=== PATIENT | male | born 1965 | race Caucasian/White ===

== ENCOUNTER → 2016-08-17 19:47 | Outpatient (CLI) | payer MEDICAID, BC | END | disposition home or self-care (01) | LOC: D.SLEEP 19:47 | DX: G47.33 Obstructive sleep apnea (adult) (pediatric) (principal) ==

== ENCOUNTER 2016-08-28 16:39 | Emergency (ER) | payer MEDICAID, BC ==
[2016-08-28 18:36] LABS: BASOPHILS 0.5 % (0.0-2.0); EOSINOPHILS 2.3 % (0-7); HEMATOCRIT 42.7 % (42.0-54.0); HEMOGLOBIN 15.2 g/dL (13.5-17.5); IMMATURE GRANULOCYTES 0.1 % (0-5); LYMPHOCYTES 26.9 % (15-50); MCH 30.7 pg (26.0-34.0); MCHC 35.6 g/dL (31.0-37.0); MCV 86.3 fL (80.0-100.0); MEAN PLATELET VOLUME 9.5 fL (7.4-10.4); NEUTROPHILS 62.2 % (40-80); PLATELET COUNT 182 10x3/uL (130-400); RBC 4.95 10x6/uL (4.20-6.10); RDW 12.6 % (11.5-14.5); WBC 7.5 10x3/uL (4.8-10.8)
[2016-08-28 19:04] LABS: ALBUMIN 4.2 g/dL (3.4-5.0); ALKALINE PHOSPHATASE 68 U/L (46-116); ALT (SGPT) 44 U/L (10-68); CALC OSMOLALITY 286 mosm/kg (275-300); CALCIUM 9.3 mg/dL (8.5-10.1); CHLORIDE - SERUM 104 mmol/L (98-107); CREATININE - SERUM 0.7 mg/dL (0.6-1.3); GLUCOSE 136 mg/dL (74-106); POTASSIUM - SERUM 3.4 mmol/L (3.5-5.1); PROTEIN - SERUM 7.5 g/dL (6.4-8.2); SODIUM 143 mmol/L (136-145); UREA NITROGEN 13 mg/dL (7-18); eGFR NON AFRICAN AMERICAN > 90 mL/min (90-120)
[2016-08-28 19:15] LABS: CREATINE KINASE 127 UL (21-232); TROPONIN-I < 0.017 ng/mL (0.000-0.060)
== END 2016-08-28 22:30 | disposition home or self-care (01) ==
LOC: D.ER 16:39
PROVIDERS: Emergency Medicine
DX: F19.939 Other psychoactive substance use, unspecified with withdrawal, unspecified (principal); F41.9 Anxiety disorder, unspecified; R11.0 Nausea; R51 Headache; G47.00 Insomnia, unspecified; E11.9 Type 2 diabetes mellitus without complications; Z79.4 Long term (current) use of insulin; I10 Essential (primary) hypertension

== ENCOUNTER → 2016-09-05 20:01 | Outpatient (CLI) | payer MEDICAID, BC | END | disposition home or self-care (01) | LOC: D.SLEEP 20:00 | DX: G47.33 Obstructive sleep apnea (adult) (pediatric) (principal) ==

== ENCOUNTER → 2020-10-25 11:33 | Outpatient (CLI) | payer OTHER ==
[~2020-10-25 11:33] MED LIST: HYDROCODON-ACE1 EA10 PO
== END | disposition home or self-care (01) ==
LOC: D.RAD 11:30
PROVIDERS: ATTEND Pediatrics
DX: Z02.71 Encounter for disability determination (principal)

== ENCOUNTER 2020-10-25 12:32 | Emergency (ER) | payer OTHER ==
[~2020-10-25] VITALS: Ht 167.6 cm; Wt 95.5 kg
[2020-10-25 13:16] VITALS: Ht 167.6 cm; Wt 95.5 kg
[2020-10-25] MEDS ORDERED: HYDROCODON-ACE1 EA10 PO (21:05)
[2020-10-25 21:33] VITALS: BP 137/98
== END 2020-10-25 21:33 | disposition home or self-care (01) ==
LOC: D.ER 12:32
DX: M48.02 Spinal stenosis, cervical region (principal); E11.9 Type 2 diabetes mellitus without complications; I10 Essential (primary) hypertension

== ENCOUNTER 2020-10-28 19:13 | Emergency (ER) | payer SELFPAY ==
[~2020-10-28] VITALS: Ht 167.6 cm; Wt 95.3 kg
[2020-10-28 19:26] VITALS: Ht 167.6 cm; Wt 95.3 kg
[2020-10-28] MEDS ORDERED: HYDROCODON-ACE1 EA10 PO (21:31)
[2020-10-28 23:00] VITALS: BP 143/95
== END 2020-10-28 23:00 | disposition home or self-care (01) ==
LOC: D.ER 19:13
DX: M25.511 Pain in right shoulder (principal); M25.512 Pain in left shoulder; E11.9 Type 2 diabetes mellitus without complications; I10 Essential (primary) hypertension